=== PATIENT | male | born 1955 | race American Indian/Alaskan Native ===

== ENCOUNTER 2019-06-27 22:59 | Emergency (ER) | payer OTHER ==
[2019-06-27 23:44] LABS: Basophils % (Auto) 0.3 % (0.0-1.8); Hematocrit 55.3 % (35.5-45.6); Hemoglobin 18.8 gm/dl (11.8-15.2); Lymphocytes # (Auto) 0.4 K/mm3 (1.2-5.4); Lymphocytes % (Auto) 5.1 % (13.4-35.0); Mean Corpuscular HGB Conc 34 % (32-34); Mean Corpuscular Volume 93 fl (84-94); Monocytes # (Auto) 0.8 K/mm3 (0.0-0.8); Monocytes % (Auto) 9.3 % (0.0-7.3); Platelet Count 261 K/mm3 (140-440); Red Blood Count 5.97 M/mm3 (3.65-5.03); Red Cell Distribution Width 14.8 % (13.2-15.2)
[2019-06-28 00:06] LABS: Alanine Aminotransferase 17 units/L (7-56); BUN/Creatinine Ratio 17; Blood Urea Nitrogen 24 mg/dL (9-20); Hemolysis Index 11
[2019-06-28] MEDS ORDERED: ZOFRAN IV ONE (01:09)
[2019-06-28] MEDS ORDERED: NACL 0.9% 1000 ML 1,000 ML IV ONE (01:09)
[2019-06-28] MEDS ORDERED: PEPCID IV ONE (01:09)
[2019-06-28 05:16] LABS: Bilirubin,Urine NEG (Negative); Blood,Urine MOD (Negative); Color,Urine Yellow (Yellow); Mucus,Urine 2+ /HPF; Urobilinogen,Urine < 2.0 mg/dL (<2.0)
[2019-06-28] MEDS ORDERED: ROCEPHIN/NS 1 GM/50 ML 1 GM/50 ML BAG IV ONE (05:51)
--- NOTE | 2019-06-28 06:00 | Emergency Department Report ---
ED N/V/D HPI - General Chief complaint: Nausea/Vomiting/Diarrhea Stated complaint: N/V Source: patient Mode of arrival: Ambulatory Limitations: No Limitations - History of Present Illness Initial comments: Patient is a 64-year-old -[place] male with a history of hypertension who presents to the ED with complaint of acute onset persistent nausea and vomiting intermittently for the last 2 days. Patient states that he has not been able to keep anything down in the last 2 days because of persistent nausea and vomiting and now feels that he may be dehydrated. Patient states that he has also had mild diffuse abdominal pain related to the epigastric area, made worse by nausea and vomiting. Patient denies fever, chills, diarrhea, dysuria, urinary frequency and urgency, chest pain, shortness of breath, cough, nasal and sinus congestion, dizziness, change in vision, syncope, sore throat, hematochezia, hematemesis, or headache. MD complaint: nausea, vomiting, abdominal pain -: Sudden, days(s) (2) Description of Vomiting: food contents, watery, bilious Associated Abdominal Pain: Yes (epigastric) Location: epigastric Radiation: none Severity: severe Pain Scale: 7 Quality: cramping, aching, sharp Consistency: intermittent Improves with: none Worsens with: eating, vomiting Context: possible food poisoning Associated Symptoms: denies other symptoms, myalgias, loss of appetite, malaise, nausea/vomiting. denies: chest pain, cough, diaphoresis, fever/chills, headaches, rash, dysuria, shortness of breath - Related Data Previous Rx's Medication Instructions Recorded Last Taken Type Dicyclomine [Bentyl] 20 mg PO Q6H PRN #24 tablet 06/28/19 Unknown Rx Ondansetron [Zofran ODT TAB] 8 mg PO Q8HR PRN #24 tab.rapdis 06/28/19 Unknown Rx Sulfamethoxazole/Trimethoprim 1 each PO Q12H #20 tablet 06/28/19 Unknown Rx [Bactrim DS TAB] raNITIdine HCl [Zantac] 150 mg PO Q12H #30 tablet 06/28/19 Unknown Rx Allergies Allergy/AdvReac Type Severity Reaction Status Date / Time No Known Allergies Allergy Unverified 06/27/19 23:14 ED Review of Systems ROS: Stated complaint: N/V Other details as noted in HPI Constitutional: denies: chills, fever Eyes: denies: eye pain, eye discharge, vision change ENT: denies: ear pain, throat pain Respiratory: denies: cough, shortness of breath, wheezing Cardiovascular: denies: chest pain, palpitations Endocrine: no symptoms reported Gastrointestinal: abdominal pain, nausea, vomiting. denies: diarrhea Genitourinary: denies: urgency, dysuria Musculoskeletal: denies: back pain, joint swelling, arthralgia Skin: denies: rash, lesions Neurological: denies: headache, weakness, paresthesias Psychiatric: denies: anxiety, depression Hematological/Lymphatic: denies: easy bleeding, easy bruising ED Past Medical Hx - Past Medical History Previous Medical History?: Yes Hx Hypertension: Yes - Surgical History Past Surgical History?: No - Social History Smoking Status: Current Some Day Smoker Substance Use Type: None - Medications Home Medications: Home Medications Medication Instructions Recorded Confirmed Last Taken Type Dicyclomine [Bentyl] 20 mg PO Q6H PRN #24 tablet 06/28/19 Unknown Rx Ondansetron [Zofran ODT TAB] 8 mg PO Q8HR PRN #24 tab.rapdis 06/28/19 Unknown Rx Sulfamethoxazole/Trimethoprim 1 each PO Q12H #20 tablet 06/28/19 Unknown Rx [Bactrim DS TAB] raNITIdine HCl [Zantac] 150 mg PO Q12H #30 tablet 06/28/19 Unknown Rx ED Physical Exam - General Limitations: No Limitations General appearance: alert, in no apparent distress - Head Head exam: Present: atraumatic, normocephalic, normal inspection - Eye Eye exam: Present: normal appearance, PERRL, EOMI Pupils: Present: normal accommodation - ENT ENT exam: Present: normal exam, normal orophraynx, mucous membranes moist, TM's normal bilaterally, normal external ear exam - Neck Neck exam: Present: normal inspection, full ROM - Respiratory Respiratory exam: Present: normal lung sounds bilaterally. Absent: respiratory distress, wheezes, rales, rhonchi, chest wall tenderness, accessory muscle use, decreased breath sounds, prolonged expiratory - Cardiovascular Cardiovascular Exam: Present: regular rate, normal rhythm, normal heart sounds. Absent: systolic murmur, diastolic murmur, rubs, gallop - GI/Abdominal GI/Abdominal exam: Present: soft, normal bowel sounds. Absent: distended, tenderness, guarding, rebound, hyperactive bowel sounds, hypoactive bowel sounds, organomegaly - Rectal Rectal exam: Present: deferred - Extremities Exam Extremities exam: Present: normal inspection, full ROM, normal capillary refill - Back Exam Back exam: Present: normal inspection, full ROM. Absent: tenderness, CVA tenderness (R), CVA tenderness (L), muscle spasm, vertebral tenderness - Neurological Exam Neurological exam: Present: alert, oriented X3, CN II-XII intact, normal gait, reflexes normal - Psychiatric Psychiatric exam: Present: normal affect, normal mood - Skin Skin exam: Present: warm, dry, intact, normal color. Absent: rash ED Course Vital Signs 06/27/19 23:10 Temperature 98.4 F Pulse Rate 73 Respiratory 16 Rate Blood Pressure 198/90 O2 Sat by Pulse 96 Oximetry - Reevaluation(s) Reevaluation #1: 06/28/19 05:56 This is a 64-year-old -[place] male with no past medical history presented to the ED with acute onset persistent intractable nausea and vomiting and mild epigastric pain for 2 days. In the ED, patient is alert and oriented 3 and is not in distress with normal vital signs. Lab test results show the BUN of 24, hyperglycemia 137 mg/dL and urinary tract infection. There is a lab test results are nonactionable including 2 troponin tests. Patient was treated for nausea and vomiting, also given antacids and normal saline 1 L IV bolus. Patient also received Rocephin 1 g IV in the ED. The EKG shows sinus bradycardia with a ventricular rate of 51 bpm and inverted T waves in lead 2, aVL, lead 3, aVF and V1, V2, V3, V4, V5 and V6. There is no old EKG available to compare with the current EKG reading. A second troponin level was checked and was normal. These findings were discussed with Dr. Sharp the ED attending physician wanted the plan of care. On reevaluation, patient felt better, able to keep a very oral fluids taken in the ED, resting comfortably in the ED in no distress. Patient was discharged home on antiemetics, antacids, and antibiotics for UTI. Patient was advised to drink plenty of fluids, take medications and follow up with his primary care physician in 5-7 days for reevaluation or return to the ED immediately if symptoms get worse. 06/28/19 05:56 ED Medical Decision Making - Lab Data Result diagrams: 06/27/19 23:30 06/27/19 23:30 - EKG Data EKG shows normal: sinus rhythm Rate: bradycardia - Medical Decision Making This is a 64-year-old -[place] male with no past medical history presented to the ED with acute onset persistent intractable nausea and vomiting and mild epigastric pain for 2 days. In the ED, patient is alert and oriented 3 and is not in distress with normal vital signs. Lab test results show the BUN of 24, hyperglycemia 137 mg/dL and urinary tract infection. There is a lab test results are nonactionable including 2 troponin tests. Patient was treated for nausea and vomiting, also given antacids and normal saline 1 L IV bolus. Patient also received Rocephin 1 g IV in the ED. The EKG shows sinus bradycardia with a ventricular rate of 51 bpm and inverted T waves in lead 2, aVL, lead 3, aVF and V1, V2, V3, V4, V5 and V6. There is no old EKG available to compare with the current EKG reading. A second troponin level was checked and was normal. These findings were discussed with Dr. Sharp the ED attending physician wanted the plan of care. On reevaluation, patient felt better, able to keep a very oral fluids taken in the ED, resting comfortably in the ED in no distress. Patient was discharged home on antiemetics, antacids, and antibiotics for UTI. Patient was advised to drink plenty of fluids, take medications and follow up with his primary care physician in 5-7 days for reevaluation or return to the ED immediately if symptoms get worse. 06/28/19 05:56 - Differential Diagnosis Gastroenteritis; Vomiting; GERD; Dehydration; UTI; ACS Critical care attestation.: If time is entered above; I have spent that time in minutes in the direct care of this critically ill patient, excluding procedure time. ED Disposition Clinical Impression: Dehydration, Nausea and vomiting in adult, Acute urinary tract infection Abdominal pain Qualifiers: Abdominal location: generalized Qualified Code(s): R10.84 - Generalized abdominal pain Disposition: DC-01 TO HOME OR SELFCARE Is pt being admited?: No Does the pt Need Aspirin: No Condition: Stable Instructions: Gastroenteritis (ED), Abdominal Pain (ED), Acute Nausea and Vomiting (ED), Urinary Tract Infection in Men (ED), Dehydration (ED) Additional Instructions: Maintain a clear liquid diet for 12-24 hours, take medications as prescribed, and follow up with your primary care physician in 5-7 days for reevaluation. Return to the ED immediately if symptoms get worse. Prescriptions: Sulfamethoxazole/Trimethoprim [Bactrim DS TAB] 1 each PO Q12H #20 tablet Dicyclomine [Bentyl] 20 mg PO Q6H PRN #24 tablet PRN Reason: Pain , Severe (7-10) raNITIdine HCl [Zantac] 150 mg PO Q12H #30 tablet Ondansetron [Zofran ODT TAB] 8 mg PO Q8HR PRN #24 tab.rapdis PRN Reason: Nausea And Vomiting Referrals: PRIMARY CARE, [Primary Care Provider] - 3-5 Days Time of Disposition: 06:02 Print Language: UKRA[place]
[2019-06-28 06:40] VITALS: BP 138/86
== END 2019-06-28 06:45 | disposition home or self-care (01) ==
LOC: ED 22:59
DX: N39.0 Urinary tract infection, site not specified (principal); E86.0 Dehydration; I10 Essential (primary) hypertension; F17.200 Nicotine dependence, unspecified, uncomplicated
CPT/HCPCS: 36415; 80053; 81001; 83690; 84484; 85025; 87086; 93005; 93010; 96361; 96365; 96375; 99283; J0696; J2405; J7030